=== PATIENT | female | born 1985 | race Caucasian/White ===

== ENCOUNTER 2022-11-02 15:32 | Emergency (ER) | payer OTHER ==
[2022-11-02 15:40] VITALS: BP 104/56; PULSE 72; RESP 18; TEMP 98.8; BMI 26.9
[2022-11-02] MEDS ORDERED: ACETAMINOPHEN 500 MG TABLET (FP) PO ONE (15:58)
[2022-11-02] MEDS ORDERED: ACETAMINOPHEN 500 MG TABLET (FP) ONE (15:59)
== END 2022-11-02 17:33 | disposition home or self-care (01) ==
LOC: JER 15:32 → JERFT 15:32
DX: S91.012A Laceration without foreign body, left ankle, initial encounter (principal); W25.XXXA Contact with sharp glass, initial encounter; Y92.002 Bathroom of unspecified non-institutional (private) residence as the place of occurrence of the external cause
CPT/HCPCS: 73610-TC-LT-FY; 99283-25

== ENCOUNTER 2022-11-15 15:29 | Emergency (ER) | payer OTHER ==
[2022-11-15 15:44] VITALS: BP 106/60; PULSE 77; RESP 18; TEMP 98.4; BMI 26.9
== END 2022-11-15 17:53 | disposition home or self-care (01) ==
LOC: JERFT 15:29
DX: Z48.02 Encounter for removal of sutures (principal)
CPT/HCPCS: 99281-25

== ENCOUNTER 2023-07-18 14:16 | Emergency (ER) | payer OTHER ==
[2023-07-18 14:26] VITALS: BP 99/64; PULSE 89; RESP 20; TEMP 98.2; BMI 25.6
[2023-07-18] MEDS ORDERED: LIDOCAINE 4% PATCH TP ONE (15:25)
[2023-07-18] MEDS ORDERED: ACETAMINOPHEN 500 MG TABLET (FP) ONE (15:25)
[2023-07-18] MEDS ORDERED: KETOROLAC TROMETHAMINE 30 MG/1 ML VIAL ONE (15:25)
[2023-07-18] MEDS: ACETAMINOPHEN 500 MG TABLET (FP) PO ONE (15:31)
[2023-07-18] MEDS: KETOROLAC TROMETHAMINE 30 MG/1 ML VIAL IM ONE (15:31)
[2023-07-18] MEDS: LIDOCAINE 4% PATCH TP ONE (15:32)
[2023-07-18] MEDS ORDERED: LIDOCAINE PATCH REMOVAL MC SCH (22:00)
== END 2023-07-18 15:50 | disposition home or self-care (01) ==
LOC: JERFT 14:16 → JER 14:16 → JERFT 15:50
PROC: 3E0233Z Introduction of Anti-inflammatory into Muscle, Percutaneous Approach (ICD-10-PCS; principal; 2023-07-18)
DX: M54.2 Cervicalgia (principal); M25.512 Pain in left shoulder; M62.838 Other muscle spasm
CPT/HCPCS: 99284-25